=== PATIENT | male | born 1970 | race Asian ===

== ENCOUNTER 2020-09-02 21:28 | Emergency (ER) | payer MEDICARE, MEDICAID ==
[~2020-09-02] VITALS: Ht 162.6 cm; Wt 63.5 kg
[2020-09-02 22:07] LABS: BASOPHILS % (AUTO) 0.3 % (0.0-2.0); EOSINOPHILS % (AUTO) 0.4 % (0.0-6.0); HEMATOCRIT 38 % (39-51); HEMOGLOBIN 12.8 g/dL (13.5-17.5); LYMPHOCYTES # (AUTO) 1.1 /CMM (0.8-4.8); LYMPHOCYTES % (AUTO) 9.8 % (20.0-44.0); MEAN CORPUSCULAR HGB CONC 34 g/dl (31.0-36.0); MEAN CORPUSCULAR VOLUME 89 fL (80-96); MONOCYTES # (AUTO) 0.7 /CMM (0.1-1.30); MONOCYTES % (AUTO) 6.3 % (2.0-12.0); NEUTROPHILS # (AUTO) 8.9 /CMM (1.8-8.9); NEUTROPHILS % (AUTO) 83.2 % (43.0-81.0); PLATELET COUNT (AUTO) 471 /CMM (150-450); RED BLOOD CELL COUNT(AUTO) 4.24 MIL/uL (4.5-6.0); WHITE BLOOD COUNT (AUTO) 10.8 K/uL (4.3-11.0)
--- NOTE | 2020-09-02 22:14 | NUR ---
RAPID COVID SWAB COLLECTED AND SENT TO LAB.
[2020-09-02 22:39] LABS: ACETAMINOPHEN < 2 ug/ml (10-30); ALANINE AMINOTRANSFERASE 24 U/L (12-78); ALBUMIN 3.1 g/dL (3.4-5.0); ALCOHOL, BLOOD < 3 mg/dL (0-0); ALKALINE PHOSPHATASE 109 U/L (46-116); ASPARTATE AMINOTRANSFERASE 25 U/L (15-37); BILIRUBIN,DIRECT 0.1 mg/dL (0.0-0.2); BILIRUBIN,TOTAL 0.6 mg/dL (0.2-1.0); CALCIUM, SERUM 8.8 mg/dL (8.5-10.1); CARBON DIOXIDE 29 mmol/L (21-32); CHLORIDE 99 mmol/L (98-107); CREATININE 1.3 mg/dL (0.6-1.3); GLUCOSE 345 mg/dL (74-106); POTASSIUM 3.6 mmol/L (3.5-5.1); SODIUM SERUM 138 mmol/L (136-145); TOTAL PROTEIN, SERUM 7.7 g/dL (6.4-8.2); UREA NITROGEN, BLOOD 21 mg/dL (7-18)
[2020-09-02 22:52] LABS: BILIRUBIN,URINE SMALL (NEGATIVE); COLOR,URINE YELLOW (YELLOW); LEUKOCYTE ESTERASE ,URINE Negative (NEGATIVE); NITRITE, URINE Negative (NEGATIVE); PH,URINE 6.5 (5.0-8.0); PROTEIN,URINE 30 mg/dl (NEGATIVE); UGLUCOSE >=1000 mg/dL (NEGATIVE)
[2020-09-02 23:24] LABS: BACTERIA,URINE Rare /HPF (None Seen); SQUAMOUS EPITHELIAL CELL,UR Few /HPF (None Seen); WBC,URINE NONE SEEN /HPF (0-3)
--- NOTE | 2020-09-02 23:51 | NUR ---
FACESHEET AND CLINICAL FAXED TO [facility] FOR VOLUNTARY PSYCH ADMISSION.
--- NOTE | 2020-09-02 23:54 | NUR ---
LAB CALLED REGARDING NEGATIVE COVID RESULT.
--- NOTE | 2020-09-03 03:42 | NUR ---
TRANSFER INFORMATION: PT ACCEPTED AT [facility] ACCEPTING MD THOMPOSN PT WILL GO TO UNIT 2 PHONE NUMBER FOR REPORT PLEASE CALL FOR REPORT AFTER 07:30AM
--- NOTE | 2020-09-03 04:04 | NUR ---
[facility] ETA [id number]
--- NOTE | 2020-09-03 08:04 | NUR ---
REPORT GIVEN TO MARKIE MCFARLANE OF UNIT 2 [facility]
[2020-09-03 09:22] VITALS: BP 151/92
--- NOTE | 2020-09-03 09:22 | NUR ---
PICKED UP BY [facility] UNIT 230 IN STABLE CONDITION. PATIENT WILL BE TRANSFERRED TO [facility] UNIT 2. CLINICALS GIVEN TO EMT TO BE GIVEN TO THE HOSPITAL STAFF.
== END 2020-09-03 09:24 ==
LOC: ER 21:31
DX: R45.851 Suicidal ideations (principal); E11.9 Type 2 diabetes mellitus without complications; I10 Essential (primary) hypertension; Z88.8 Allergy status to other drugs, medicaments and biological substances; Z20.822 Contact with and (suspected) exposure to COVID-19
CPT/HCPCS: 36415; 80048-TC; 80076-TC; 81001; 82962-TC; 85025-TC; C9803; G0480

== ENCOUNTER 2022-01-03 21:22 | Emergency (ER) | payer MEDICARE, OTHER ==
[~2022-01-03] VITALS: Ht 167.6 cm; Wt 63.0 kg
--- NOTE | 2022-01-04 00:06 | NUR ---
BIBS C/O SI WITHOUT A PLAN, REQUESTING TO BE MEDICALLY CLEARED FOR VOLUNTARY ADMISSION AT [facility]. PT AWAKE AND ALERT X4 AMBULATORY WITH STEADY GAIT. PT CHANGED INTO A GOWN AND WANDED BY SECURITY FOR HAZARDOUS ITEMS. SAFETY MEASURES IN PLACE. V/S WNL.
--- NOTE | 2022-01-04 00:07 | NUR ---
[facility] AT BEDSIDE FOR BLOOD DRAW
--- NOTE | 2022-01-04 00:07 | NUR ---
COVID SWAB COLLECTED AND SENT TO LAB
[2022-01-04 00:39] LABS: BASOPHILS # (AUTO) 0.1 K/uL (0.0-0.2); BASOPHILS % (AUTO) 1.2 % (0.0-2.0); EOSINOPHILS % (AUTO) 2.5 % (0.0-6.0); HEMATOCRIT 41 % (39-51); HEMOGLOBIN 13.9 g/dL (13.5-17.5); LYMPHOCYTES # (AUTO) 2.4 K/uL (0.8-4.8); LYMPHOCYTES % (AUTO) 27.3 % (20.0-44.0); MEAN CORPUSCULAR HGB CONC 34 g/dl (31.0-36.0); MEAN CORPUSCULAR VOLUME 87 fL (80-96); MONOCYTES # (AUTO) 0.5 K/uL (0.1-1.30); MONOCYTES % (AUTO) 5.3 % (2.0-12.0); NEUTROPHILS # (AUTO) 5.6 K/uL (1.8-8.9); NEUTROPHILS % (AUTO) 63.7 % (43.0-81.0); PLATELET COUNT (AUTO) 453 K/uL (150-450); RED BLOOD CELL COUNT(AUTO) 4.75 MIL/uL (4.5-6.0); WHITE BLOOD COUNT (AUTO) 8.8 K/uL (4.3-11.0)
[2022-01-04 01:01] LABS: CALCIUM, SERUM 8.7 mg/dL (8.5-10.1); CARBON DIOXIDE 26 mmol/L (21-32); CHLORIDE 105 mmol/L (98-107); GLUCOSE 134 mg/dL (74-106); POTASSIUM 4.1 mmol/L (3.5-5.1); SODIUM SERUM 139 mmol/L (136-145); UREA NITROGEN, BLOOD 17 mg/dL (7-18)
[2022-01-04 01:03] LABS: ALANINE AMINOTRANSFERASE 26 U/L (12-78); ALBUMIN 3.8 g/dL (3.4-5.0); ALKALINE PHOSPHATASE 82 U/L (46-116); ASPARTATE AMINOTRANSFERASE 18 U/L (15-37); BILIRUBIN,DIRECT 0.1 mg/dL (0.0-0.2); BILIRUBIN,TOTAL 0.3 mg/dL (0.2-1.0)
[2022-01-04 01:06] LABS: ACETAMINOPHEN < 2 ug/ml (10-30); ALCOHOL, BLOOD < 3 mg/dL (0-0)
[2022-01-04 03:22] LABS: BILIRUBIN,URINE NEGATIVE (NEGATIVE); COLOR,URINE YELLOW (YELLOW); LEUKOCYTE ESTERASE ,URINE NEGATIVE (NEGATIVE); NITRITE, URINE NEGATIVE (NEGATIVE); PROTEIN,URINE 100 mg/dl (NEGATIVE); UGLUCOSE 100 MG/DL mg/dL (NEGATIVE); UROBILINOGEN,URINE 0.2 EU/dL (0.2)
[2022-01-04 03:51] LABS: WBC,URINE 0-2 /HPF (0-3)
[2022-01-04 03:52] LABS: BACTERIA,URINE Rare /HPF (None Seen); SQUAMOUS EPITHELIAL CELL,UR None Seen /HPF (None Seen)
--- NOTE | 2022-01-04 04:10 | NUR ---
FACESHEET AND CLINICALS FAXED TO [facility].
--- NOTE | 2022-01-04 06:03 | NUR ---
ACCEPTED AT [facility] DR JAY MATHEW MD FOR REPORT
--- NOTE | 2022-01-04 06:08 | NUR ---
[facility] ETA:60-90 MIN
--- NOTE | 2022-01-04 07:12 | NUR ---
pt picked up by [facility]
[2022-01-04 07:54] VITALS: BP 138/73
== END 2022-01-04 09:17 ==
LOC: ER 21:25
DX: R45.851 Suicidal ideations (principal); I10 Essential (primary) hypertension; Z20.822 Contact with and (suspected) exposure to COVID-19; E11.9 Type 2 diabetes mellitus without complications
CPT/HCPCS: 36415; 80048-TC; 80076-TC; 81001; 85025-TC; C9803; G0480

== ENCOUNTER 2022-01-15 02:55 | Emergency (ER) | payer MEDICARE, OTHER ==
[~2022-01-15] VITALS: Ht 162.6 cm; Wt 65.8 kg
--- NOTE | 2022-01-15 03:51 | NUR ---
BIBSELF C/O +SI NO PLAN, WANTS TO BE MEDICALLY CLEARED FOR VOL PSYCH ADMITION. PT AWAKE AND ALERT AMBULATORY WITH STEADY GAIT. PT CHANGED INTO GOWN AND BELONGINGS PLACED IN LOCKER. SAFETY PRECAUTIONS IN PLACE. ALL V/S WNL.
[2022-01-15 03:58] LABS: BILIRUBIN,URINE NEGATIVE (NEGATIVE); COLOR,URINE YELLOW (YELLOW); LEUKOCYTE ESTERASE ,URINE NEGATIVE (NEGATIVE); NITRITE, URINE NEGATIVE (NEGATIVE); PH,URINE 6.5 (5.0-8.0); PROTEIN,URINE 30 mg/dl (NEGATIVE); UGLUCOSE NEGATIVE (NEGATIVE); UROBILINOGEN,URINE 0.2 EU/dL (0.2)
[2022-01-15 04:02] LABS: BASOPHILS % (AUTO) 0.6 % (0.0-2.0); EOSINOPHILS % (AUTO) 1.2 % (0.0-6.0); HEMATOCRIT 44 % (39-51); HEMOGLOBIN 14.9 g/dL (13.5-17.5); LYMPHOCYTES # (AUTO) 1.7 K/uL (0.8-4.8); LYMPHOCYTES % (AUTO) 22.4 % (20.0-44.0); MEAN CORPUSCULAR HGB CONC 34 g/dl (31.0-36.0); MEAN CORPUSCULAR VOLUME 87 fL (80-96); MONOCYTES # (AUTO) 0.6 K/uL (0.1-1.30); NEUTROPHILS # (AUTO) 5.2 K/uL (1.8-8.9); NEUTROPHILS % (AUTO) 67.8 % (43.0-81.0); PLATELET COUNT (AUTO) 335 K/uL (150-450); RED BLOOD CELL COUNT(AUTO) 5.05 MIL/uL (4.5-6.0); WHITE BLOOD COUNT (AUTO) 7.7 K/uL (4.3-11.0)
[2022-01-15 04:06] LABS: RBC,URINE 0-2 /HPF (0-2); WBC,URINE 0-2 /HPF (0-3)
[2022-01-15 04:07] LABS: BACTERIA,URINE Rare /HPF (None Seen); SQUAMOUS EPITHELIAL CELL,UR Few /HPF (None Seen)
[2022-01-15 04:09] LABS: CALCIUM, SERUM 9.7 mg/dL (8.5-10.1); CARBON DIOXIDE 33 mmol/L (21-32); CHLORIDE 99 mmol/L (98-107); GLUCOSE 143 mg/dL (74-106); POTASSIUM 4.2 mmol/L (3.5-5.1); SODIUM SERUM 139 mmol/L (136-145); UREA NITROGEN, BLOOD 19 mg/dL (7-18)
[2022-01-15 04:13] LABS: ALANINE AMINOTRANSFERASE 46 U/L (12-78); ALBUMIN 4.5 g/dL (3.4-5.0); ALKALINE PHOSPHATASE 90 U/L (46-116); ASPARTATE AMINOTRANSFERASE 20 U/L (15-37); BILIRUBIN,DIRECT 0.2 mg/dL (0.0-0.2); BILIRUBIN,TOTAL 0.7 mg/dL (0.2-1.0); TOTAL PROTEIN, SERUM 8.9 g/dL (6.4-8.2)
[2022-01-15 04:14] LABS: ACETAMINOPHEN 0 ug/ml (10-30); ALCOHOL, BLOOD < 3 mg/dL (0-0)
--- NOTE | 2022-01-15 05:20 | NUR ---
FACESHEET AND CLINICALS FAXED TO [facility].
--- NOTE | 2022-01-15 09:39 | NUR ---
Followed-up with [facility], awaiting for X-Ray results.
--- NOTE | 2022-01-15 10:15 | NUR ---
RADIOLOGY RESULTS FAXED TO [facility].
--- NOTE | 2022-01-15 11:06 | NUR ---
Per Nora from [facility], pt.'s clinicals will be sent over to [facility] or [place] for review.
--- NOTE | 2022-01-15 12:18 | NUR ---
Pt. accepted to [place] under Dr. Rothman. Number to report: [phone].
--- NOTE | 2022-01-15 12:23 | NUR ---
[facility] ETA 1HOUR 30 MINS TO [place].
--- NOTE | 2022-01-15 13:30 | NUR ---
CALLED [facility] PLACED ON WILL CALL
--- NOTE | 2022-01-15 13:43 | NUR ---
[facility] [place] [place] THEATRE DIRECT[facility] PT AT [phone]
[2022-01-15 14:51] VITALS: BP 127/74
--- NOTE | 2022-01-15 15:02 | NUR ---
Patient picked up by [facility] transportation in stable condition. All belongings given back to patient.
== END 2022-01-15 15:06 ==
LOC: ER 02:56
DX: R45.851 Suicidal ideations (principal); I10 Essential (primary) hypertension; S52.021G Displaced fracture of olecranon process without intraarticular extension of right ulna, subsequent encounter for closed fracture with delayed healing; X58.XXXD Exposure to other specified factors, subsequent encounter; Z20.822 Contact with and (suspected) exposure to COVID-19; Z59.00 Homelessness unspecified
CPT/HCPCS: 36415; 73080-TC; 73090-TC; 80048-TC; 80076-TC; 81001; 85025-TC; C9803; G0480

== ENCOUNTER 2022-03-03 02:03 | Emergency (ER) | payer MEDICARE, OTHER ==
[~2022-03-03] VITALS: Ht 162.6 cm; Wt 63.5 kg
--- NOTE | 2022-03-03 03:47 | NUR ---
PATIENT BIBSELF C/O +SI NO PLAN WANT VOL PSYCH ADMIT. PT A/OX3. TOLERATING R/A WELL WITH NO RESP DISTRESS. PT AMBULATORY WITH STEADY GAIT. PT CHANGED IN GOWN, BELONGINGS COLLECTED AND PLACED IN LOCKER, AND WANDED BY SECURITY. SAFETY MEASURES IN PLACE.
--- NOTE | 2022-03-03 03:48 | NUR ---
URINE COLLECTED SENT TO LAB
--- NOTE | 2022-03-03 03:48 | NUR ---
COVID SWAB COLLECTED SENT TO LAB
[2022-03-03 04:21] LABS: BASOPHILS % (AUTO) 0.6 % (0.0-2.0); EOSINOPHILS % (AUTO) 1.5 % (0.0-6.0); HEMATOCRIT 44 % (39-51); HEMOGLOBIN 14.9 g/dL (13.5-17.5); LYMPHOCYTES # (AUTO) 1.7 K/uL (0.8-4.8); MEAN CORPUSCULAR HGB CONC 34 g/dl (31.0-36.0); MEAN CORPUSCULAR VOLUME 88 fL (80-96); MONOCYTES # (AUTO) 0.6 K/uL (0.1-1.30); MONOCYTES % (AUTO) 10.8 % (2.0-12.0); NEUTROPHILS # (AUTO) 2.8 K/uL (1.8-8.9); NEUTROPHILS % (AUTO) 54.1 % (43.0-81.0); PLATELET COUNT (AUTO) 285 K/uL (150-450); RED BLOOD CELL COUNT(AUTO) 5.02 MIL/uL (4.5-6.0); WHITE BLOOD COUNT (AUTO) 5.1 K/uL (4.3-11.0)
[2022-03-03 04:28] LABS: BILIRUBIN,URINE NEGATIVE (NEGATIVE); COLOR,URINE YELLOW (YELLOW); LEUKOCYTE ESTERASE ,URINE NEGATIVE (NEGATIVE); NITRITE, URINE NEGATIVE (NEGATIVE); PROTEIN,URINE 100 mg/dl (NEGATIVE); UGLUCOSE 500 MG/DL mg/dL (NEGATIVE); UROBILINOGEN,URINE 0.2 EU/dL (0.2)
[2022-03-03 05:01] LABS: ALANINE AMINOTRANSFERASE 29 U/L (12-78); ALBUMIN 4.2 g/dL (3.4-5.0); ALCOHOL, BLOOD < 3 mg/dL (0-0); ALKALINE PHOSPHATASE 77 U/L (46-116); ASPARTATE AMINOTRANSFERASE 23 U/L (15-37); BILIRUBIN,DIRECT 0.2 mg/dL (0.0-0.2); BILIRUBIN,TOTAL 0.6 mg/dL (0.2-1.0); CARBON DIOXIDE 32 mmol/L (21-32); CHLORIDE 104 mmol/L (98-107); CREATININE 1.1 mg/dL (0.6-1.3); GLUCOSE 128 mg/dL (74-106); POTASSIUM 4.5 mmol/L (3.5-5.1); SODIUM SERUM 139 mmol/L (136-145); UREA NITROGEN, BLOOD 22 mg/dL (7-18)
[2022-03-03 05:08] LABS: ACETAMINOPHEN < 2 ug/ml (10-30)
--- NOTE | 2022-03-03 06:00 | NUR ---
FAXED CLINICALS TO [facility]
[2022-03-03 08:00] VITALS: BP 130/78
--- NOTE | 2022-03-03 09:27 | NUR ---
ACCEPTED AT [facility] UNDER DR ROBBINS GOING TO UNIT II TRANSPORT ETA 1000
--- NOTE | 2022-03-03 10:10 | NUR ---
PATIENT PICKED UP BY [facility] TRANSPORT PERSON IN STABLE CONDITION, ALL BELONGINGS GIVEN BACK TO PATIENT.
--- NOTE | 2022-03-03 11:01 | NUR ---
SS consult requested for suicidal ideation and possible homelessness. Pt. is a 52-year-old male who was admitted to [facility] on 03/03/2022 due to suicidal ideation. Upon SS consult, pt. is alert and oriented x4. Pt. presents with a depressed mood and congruent affect. Pt. presents with low speech. Pt. does not provide appropriate eye contact and appears unkempt. Pt. stated he came to the emergency room because he was "afraid people were going to hurt him." Pt. stated he had suicidal ideation. Pt. stated he did not have a current plan but "if he had a gun he would." Pt. stated he is diagnosed with bipolar disorder. Pt. stated he does not have a psychiatrist or a therapist. senior program planner offered pt. mental health resources and the pt. accepted. senior program planner explored pt.'s substance use history. Pt. stated he uses methamphetamine and drinks alcohol. senior program planner offered pt. addiction resources and pt. accepted. senior program planner explored pt.'s current living situation. Pt. stated he was at a sober living home but could not provide more information. Pt. stated he is homeless. senior program planner offered pt. homeless resources and pt. accepted. Pt. signed the waiver and it was placed in the pt.'s chart. Plan: Upon Discharge, pt. stated he wanted to be discharged to [facility] [[address] [place] [id number]]. Year-round shelters: [facility] [address] [place] [address] ; [facility] [facility] [place] [address] [place] [address]; [facility] [facility]. [facility] [id number] Hygiene: [facility]: [address] [place] ; [facility] [address] [facility] ; [facility] [address] [facility] . Food Resources: [facility]- [address] [place]; Meet Each Need with Dignity ([employer]) [address] Park[address]rishna [place]; [facility] [address] [facility]; [facility] 8596 [facility]. Mental Health resources provided: [facility] [address] [place] [address] ; [facility] [address] [facility] [address], [place] [address] ; [facility] [address] [place], [place] [id number] ; [facility] [address] [place], [place] [phone] Healthcare Clinics: [facility] [address] [facility], [address] [place]. [place] ; [facility] [address] [facility] [address] [place] [address]; [facility] [address] [facility]. [place] [id number] [phone] Substance Abuse resources provided included: [facility] Substance Abuse Self-Helpline ([facility]) ; [facility] [address] [facility]. [place] [address] ; [facility] [address] [facility] [address] ; [facility] [address] [facility] [address] ; [facility] [address] [facility] [address] ; [facility] [address] [facility] [phone] ; [facility] [address] [facility] [id number] ; [facility] Substance Abuse Helpline([facility] ; [facility] ; [facility]; [facility] Riva; [facility] [place]; [facility] [place]; [facility] [place]; [facility] John; [facility]; [facility], [facility]. Jaylen Ortiz; Alcoholics Anonymous -SFV; Ix-Chsv-Tnfecca ; Marijuana Anonymous -SFV; Narcotics Anonymous www.na.org; Counseling--[facility] [address] [facility] [place] [address] (Specializes in in-depth psychotherapy for emotional distress: anxiety, depression, interpersonal conflicts, life transitions, childhood abuse) [facility] [address] [place] [address] (Assist with solving problem marital difficulties, separation & divorce, aging parents, & grief, chronic & terminal illness) [facility] [address] [place] [address] (Deal with loss & grief, anxiety, marital difficulties) Homebound/Mental Health Services [address], [address] [place] [address] (Provide in-home mental services to people who are incapable of leaving their homes) [facility] Elder[facility] Senior Service/Resource Center [address] [place] [address] [facility] [address] [place] [address]
== END 2022-03-03 10:14 ==
LOC: ER 02:22
DX: R45.851 Suicidal ideations (principal); I10 Essential (primary) hypertension; E11.9 Type 2 diabetes mellitus without complications; Z88.8 Allergy status to other drugs, medicaments and biological substances; Z59.00 Homelessness unspecified
CPT/HCPCS: 36415; 80048-TC; 80076-TC; 85025-TC; C9803; G0480